=== PATIENT | male | born 1960 | race Caucasian/White ===

== ENCOUNTER 2018-01-01 15:07 | Inpatient (IN) ==
[2018-01-01] MEDS ORDERED: NALOXONE 0.4 MG/ML VIAL IV STA ×2 (15:13→15:14)
[2018-01-01] MEDS ORDERED: NALOXONE 0.4 MG/ML VIAL ONE ×2 (15:13→15:14)
[2018-01-01] MEDS ORDERED: ROCURONIUM 100 MG/10 ML VIAL IV ONE (15:16)
[2018-01-01] MEDS ORDERED: ETOMIDATE 20 MG/10 ML VIAL IV ONE (15:16)
[2018-01-01 15:39] LABS: Basophils # 0.1 10*3/uL (0.0-0.2); Basophils % 0.5 % (0.0-0.8); Eosinophils # 0.1 10*3/uL (0.0-0.87); Eosinophils % 0.5 % (0.00-10.9); Hematocrit 38.9 VOL% (42.0-52.0); Hemoglobin 11.9 GM/DL (14.0-18.0); Immature Granulocytes % 1.7 %; Immature Granulocytes Absolute 0.29 #; Lymphocytes # 5.7 10*3/uL (1.4-4.0); Lymphocytes % 32.8 % (21.2-54.2); Mean Corpuscular HGB Conc 30.6 GM/DL (32-36); Mean Corpuscular Hemoglobin 28 PG (27-34); Mean Corpuscular Volume 90.5 FL (87-102); Mean Platelet Volume 10.5 FL (9.6-12.0); Monocytes # 1.2 10*3/uL (0.11-0.8); NRBC # 0.08 10*3/uL; Neutrophils # 10.1 10*3/uL (1.4-7.4); Neutrophils % 57.5 % (38.7-73.9); Platelet Count 350 T/CUMM (130-400); Red Cell Distribution Width 15.1 % (9.3-17.3); White Blood Count 17.5 T/CUMM (4-12)
[2018-01-01 15:49] LABS: INR 1.2; PT Patient Result 12.8 SECS; Partial Thromboplastin Time 30.3 SECS (0-40)
[2018-01-01 15:59] LABS: Albumin 2.7 G/DL (3.4-5.0); Bilirubin,Total 2.4 MG/DL (0.2-1.0); Calcium 8.9 MG/DL (8.5-10.1); Osmolality,Calculated 294.8 MOS/KG (273-304); Potassium 4.5 MMOL/L (3.5-5.1); Total Protein 6.4 G/DL (6.4-8.3)
[2018-01-01] MEDS ORDERED: EPINEPHrine 1 MG/ML VIAL ONE ×2 (16:04→16:34)
[2018-01-01] MEDS ORDERED: MEROPENEM 1,000 MG in SODIUM CHLORIDE 0.9% 100 ML IV STA ×2 (16:09→16:33)
[2018-01-01] MEDS ORDERED: VANCOMYCIN INJ 1,500 MG in SODIUM CHLORIDE 0.9% 500 ML IV STA (16:09)
[2018-01-01] MEDS ORDERED: NOREPINEPHRINE 4 MG/4 ML VIAL IV ONE (16:28)
[2018-01-01] MEDS: NOREPINEPHRINE 8 MG in SODIUM CHLORIDE 0.9% 242 ML IV PRN ×2 (16:32→21:32)
[2018-01-01] MEDS ORDERED: VASOPRESSIN 20 UNITS/ML VIAL ONE (16:53)
[2018-01-01] MEDS ORDERED: methylPREDNISolone SOD SUC 125 MG/2 ML VIAL ONE (17:12)
[2018-01-01] MEDS ORDERED: methylPREDNISolone SOD SUC 125 MG/2 ML VIAL IV STA (17:13)
[2018-01-01 17:16] LABS: Lactic Acid 14.1 MMOL/L (0.4-2.0)
[2018-01-01] MEDS ORDERED: ALBUTEROL 2.5 MG/3 ML NEB RESP TX PRN (17:17)
[2018-01-01 17:29] LABS: ABG Base Excess -6.6 MMOL/L (-2.5-2.5); ABG Oxygen Saturation 94.2 % (95-100); ABG PCO2 66.5 MM HG (35-48); ABG PO2 97.6 MM HG (80-95); ABG TCO2 21.9 MMOL/L (23-27); Allen Test Positive; Pt O2 Delivery Device Ventilator
[2018-01-01] MEDS ORDERED: GLUCAGON 1 MG VIAL IM PRN (17:30)
[2018-01-01] MEDS ORDERED: PHENYLEPHRINE DRIP 40 MG/250 ML PREMIX IV SCH (17:30)
[2018-01-01] MEDS ORDERED: DOPamine 800 MG/250 ML PREMIX IV SCH (17:30)
[2018-01-01] MEDS ORDERED: DEXTROSE 50% 25 GM/50 ML VIAL IV PRN (17:30)
[2018-01-01] MEDS ORDERED: ENOXAPARIN 40 MG/0.4 ML SYRINGE SUBCUT SCH (17:30)
[2018-01-01 17:33] LABS: ABG PH 7.157 (7.35-7.45)
[2018-01-01] MEDS: VASOPRESSIN 100 UNITS in SODIUM CHLORIDE 0.9% 95 ML IV SCH (18:00)
[2018-01-01 19:23] LABS: Apearance,Urine CLEAR (Clear); Bacteria,Urine Occasional /HPF (Few); Bilirubin,Urine Small mg/dL (Negative); Blood, Urine Negative (Negative); Glucose,Urine (UA) Negative (Negative); Hyaline Casts,Urine 6 /LPF (0-3); Ketones,Urine Negative (Negative); Mucus,Urine Few /LPF (Occasional); Nitrite,Urine Negative (Negative); Protein,Urine 30 MG/DL; RBC,Urine 1 /HPF (0-4); Urine Color Amber (Yellow); Urine Specific Gravity 1.026 (1.001-1.035); WBC,Urine 1 /HPF (0-6)
[2018-01-01] MEDS: DEXTROSE 5% IV SCH (20:01)
[2018-01-01] MEDS: SODIUM BICARB IV SCH (20:01)
[2018-01-01 20:05] LABS: Allen Test Positive; Pt O2 Delivery Device Ventilator
[2018-01-01 20:11] LABS: ABG Base Excess -3.7 MMOL/L (-2.5-2.5); ABG HCO3 25.3 MMOL/L (20-26); ABG PCO2 63.3 MM HG (35-48); ABG PO2 184.9 MM HG (80-95); ABG TCO2 27.3 MMOL/L (23-27)
[2018-01-01] MEDS: PANTOPRAZOLE 40 MG VIAL IV SCH (20:52)
[2018-01-01] MEDS: ENOXAPARIN 120 MG/0.8 ML SYRINGE SUBCUT SCH (20:52)
[2018-01-01] MEDS: INSULIN LISPRO 100 UNIT/ML SUBCUT SCH (20:56)
[2018-01-01] MEDS ORDERED: INSULIN LISPRO 100 UNIT/ML SUBCUT SCH (21:00)
[2018-01-01 21:10] LABS: ABG Base Excess -2.9 MMOL/L (-2.5-2.5); ABG HCO3 22.8 MMOL/L (20-26); ABG Oxygen Saturation 99.3 % (95-100); ABG PCO2 43.1 MM HG (35-48); ABG PH 7.341 (7.35-7.45); ABG PO2 244.1 MM HG (80-95); ABG TCO2 24.1 MMOL/L (23-27); Allen Test Positive; Pt O2 Delivery Device Ventilator
[2018-01-02] MEDS: methylPREDNISolone SOD SUC 125 MG/2 ML VIAL IV SCH ×3 (01:28→18:05)
[2018-01-02] MEDS: INSULIN LISPRO 100 UNIT/ML SUBCUT SCH ×4 (01:31→18:27)
[2018-01-02 04:20] LABS: Basophils % 0.2 % (0.0-0.8); Hematocrit 38.2 VOL% (42.0-52.0); Hemoglobin 12.2 GM/DL (14.0-18.0); Immature Granulocytes % 0.8 %; Immature Granulocytes Absolute 0.16 #; Lymphocytes # 0.9 10*3/uL (1.4-4.0); Lymphocytes % 4.5 % (21.2-54.2); Mean Corpuscular HGB Conc 31.9 GM/DL (32-36); Mean Corpuscular Hemoglobin 28 PG (27-34); Mean Corpuscular Volume 88.4 FL (87-102); Mean Platelet Volume 11.1 FL (9.6-12.0); Monocytes # 0.4 10*3/uL (0.11-0.8); Monocytes % 2.2 % (1.7-12.7); Neutrophils # 18.9 10*3/uL (1.4-7.4); Neutrophils % 92.3 % (38.7-73.9); Platelet Count 226 T/CUMM (130-400); Red Blood Count 4.32 MC/CUMM (3.8-5.5); Red Cell Distribution Width 14.8 % (9.3-17.3); White Blood Count 20.5 T/CUMM (4-12)
[2018-01-02 04:27] LABS: INR 1.4; PT Patient Result 14.8 SECS
[2018-01-02 04:27] LABS: ABG Base Excess 0.6 MMOL/L (-2.5-2.5); ABG HCO3 24.9 MMOL/L (20-26); ABG Oxygen Saturation 99.2 % (95-100); ABG PCO2 37.7 MM HG (35-48); ABG PH 7.425 (7.35-7.45); ABG TCO2 21.7 MMOL/L (23-27); Allen Test Positive; Pt O2 Delivery Device Ventilator
[2018-01-02] MEDS: PROPOFOL 1,000 MG/100 ML BOTTLE IV SCH ×4 (04:42→21:15)
[2018-01-02 04:43] LABS: Albumin 2.5 G/DL (3.4-5.0); Bilirubin,Total 1.7 MG/DL (0.2-1.0); Calcium 8.8 MG/DL (8.5-10.1); Potassium 4.3 MMOL/L (3.5-5.1); Total Protein 6.4 G/DL (6.4-8.3)
[2018-01-02 04:55] LABS: Band Neutrophils 7 % (0-10); Hypochromasia 1+; Lymphocytes 1 % (20-55); Platelet Estimate Adequate; Segmented Neutrophils 92 % (50-85); Total Cells Counted 100
[2018-01-02] MEDS: PANTOPRAZOLE 40 MG VIAL IV SCH ×2 (05:37→18:05)
[2018-01-02] MEDS: SODIUM BICARB IV SCH (08:10)
[2018-01-02] MEDS: DEXTROSE 5% IV SCH (08:10)
[2018-01-02] MEDS: MEROPENEM 500 MG in SODIUM CHLORIDE 0.9% 100 ML IV SCH ×2 (08:32→21:46)
[2018-01-02] MEDS ORDERED: HEPARIN/NACL 0.9% 2 UNITS/ML 500 ML IV ONE (09:38)
[2018-01-02 09:51] LABS: Lactic Acid 2.3 MMOL/L (0.4-2.0)
[2018-01-02] MEDS ORDERED: SODIUM CHLORIDE 0.9% 1,000 ML IV ONE ×3 (10:40→14:00)
[2018-01-02] MEDS: SODIUM CHLORIDE 0.45% 1,000 ML IV SCH (16:52)
[2018-01-02] MEDS: VASOPRESSIN 100 UNITS in SODIUM CHLORIDE 0.9% 95 ML IV SCH (17:02)
[2018-01-02] MEDS: ENOXAPARIN 120 MG/0.8 ML SYRINGE SUBCUT SCH (18:06)
[2018-01-03] MEDS: INSULIN LISPRO 100 UNIT/ML SUBCUT SCH ×4 (00:57→18:33)
[2018-01-03] MEDS: methylPREDNISolone SOD SUC 125 MG/2 ML VIAL IV SCH ×3 (00:59→16:54)
[2018-01-03] MEDS: SODIUM CHLORIDE 0.45% 1,000 ML IV SCH ×3 (03:03→17:00)
[2018-01-03 04:04] LABS: ABG Base Excess 4.7 MMOL/L (-2.5-2.5); ABG HCO3 28.6 MMOL/L (20-26); ABG Oxygen Saturation 99.3 % (95-100); ABG PCO2 32.7 MM HG (35-48); ABG PH 7.527 (7.35-7.45); Allen Test Positive; Pt O2 Delivery Device Ventilator
[2018-01-03] MEDS: PROPOFOL 1,000 MG/100 ML BOTTLE IV SCH ×4 (04:14→23:31)
[2018-01-03] MEDS ORDERED: VANCOMYCIN INJ 1,750 MG in SODIUM CHLORIDE 0.9% 500 ML IV SCH (06:00)
[2018-01-03 06:10] LABS: INR 1.2
[2018-01-03 06:11] LABS: Basophils % 0.1 % (0.0-0.8); Hematocrit 32.6 VOL% (42.0-52.0); Hemoglobin 10.6 GM/DL (14.0-18.0); Immature Granulocytes % 0.8 %; Immature Granulocytes Absolute 0.12 #; Lymphocytes # 0.6 10*3/uL (1.4-4.0); Lymphocytes % 3.9 % (21.2-54.2); Mean Corpuscular HGB Conc 32.5 GM/DL (32-36); Mean Corpuscular Hemoglobin 29 PG (27-34); Mean Corpuscular Volume 89.1 FL (87-102); Mean Platelet Volume 11.5 FL (9.6-12.0); Monocytes # 0.2 10*3/uL (0.11-0.8); Monocytes % 1.6 % (1.7-12.7); Neutrophils # 13.9 10*3/uL (1.4-7.4); Neutrophils % 93.6 % (38.7-73.9); Platelet Count 182 T/CUMM (130-400); Red Blood Count 3.66 MC/CUMM (3.8-5.5); Red Cell Distribution Width 15.1 % (9.3-17.3); White Blood Count 14.8 T/CUMM (4-12)
[2018-01-03 06:16] LABS: Partial Thromboplastin Time 40.4 SECS (0-40)
[2018-01-03 06:19] LABS: Prealbumin 3.3 MG/DL (20-40)
[2018-01-03] MEDS ORDERED: SODIUM CHLORIDE 0.9% 250 ML IV ONE (06:28)
[2018-01-03 06:35] LABS: Band Neutrophils 6 % (0-10); Lymphocytes 2 % (20-55); Platelet Estimate Adequate; Segmented Neutrophils 91 % (50-85); Total Cells Counted 100
[2018-01-03 06:36] LABS: Hypochromasia 1+
[2018-01-03] MEDS: PANTOPRAZOLE 40 MG VIAL IV SCH ×2 (06:38→16:53)
[2018-01-03 08:15] LABS: Calcium 7.1 MG/DL (8.5-10.1); Osmolality,Calculated 306.6 MOS/KG (273-304)
[2018-01-03] MEDS: MEROPENEM 500 MG in SODIUM CHLORIDE 0.9% 100 ML IV SCH ×2 (09:36→20:53)
[2018-01-03] MEDS ORDERED: LACTATED RINGERS 1,000 ML IV ONE (09:49)
[2018-01-03] MEDS ORDERED: ALBUMIN IV SCH (10:00)
[2018-01-03] MEDS: ALBUMIN 25% 25 GM in PREMIX 1 EACH IV SCH ×2 (11:04→18:40)
[2018-01-03] MEDS ORDERED: VANCOMYCIN INJ 2,000 MG in SODIUM CHLORIDE 0.9% 500 ML IV PRN (12:00)
[2018-01-03] MEDS: LORazepam 2 MG/1 ML VIAL IV PRN ×2 (12:24→17:30)
[2018-01-03] MEDS ORDERED: VANCOMYCIN INJ 250 MG in SODIUM CHLORIDE 0.9% 100 ML IV ONE (12:30)
[2018-01-03] MEDS: ENOXAPARIN 120 MG/0.8 ML SYRINGE SUBCUT SCH (16:54)
[2018-01-03] MEDS ORDERED: INFLUENZA VIRUS VACCINE 0.5 ML SYRINGE IM ONE (23:12)
[2018-01-04] MEDS: methylPREDNISolone SOD SUC 125 MG/2 ML VIAL IV SCH ×3 (00:48→16:54)
[2018-01-04] MEDS: INSULIN LISPRO 100 UNIT/ML SUBCUT SCH ×4 (00:48→18:07)
[2018-01-04 03:32] LABS: ABG Base Excess 2.4 MMOL/L (-2.5-2.5); ABG HCO3 26.6 MMOL/L (20-26); ABG Oxygen Saturation 99.7 % (95-100); ABG PCO2 38.6 MM HG (35-48); ABG PH 7.445 (7.35-7.45); ABG TCO2 24.2 MMOL/L (23-27); Allen Test Positive; Pt O2 Delivery Device Ventilator
[2018-01-04] MEDS: SODIUM CHLORIDE 0.45% 1,000 ML IV SCH ×2 (03:55→14:27)
[2018-01-04] MEDS: PROPOFOL 1,000 MG/100 ML BOTTLE IV SCH ×3 (03:56→13:52)
[2018-01-04 05:37] LABS: Hematocrit 28.4 VOL% (42.0-52.0); Immature Granulocytes % 0.6 %; Immature Granulocytes Absolute 0.05 #; Lymphocytes # 0.4 10*3/uL (1.4-4.0); Lymphocytes % 4.5 % (21.2-54.2); Mean Corpuscular HGB Conc 31.7 GM/DL (32-36); Mean Corpuscular Hemoglobin 28 PG (27-34); Mean Corpuscular Volume 88.5 FL (87-102); Mean Platelet Volume 11.5 FL (9.6-12.0); Monocytes # 0.2 10*3/uL (0.11-0.8); Neutrophils # 8.4 10*3/uL (1.4-7.4); Neutrophils % 92.9 % (38.7-73.9); Platelet Count 117 T/CUMM (130-400); Red Blood Count 3.21 MC/CUMM (3.8-5.5); Red Cell Distribution Width 14.6 % (9.3-17.3)
[2018-01-04] MEDS: PANTOPRAZOLE 40 MG VIAL IV SCH ×2 (05:39→16:55)
[2018-01-04 05:56] LABS: Albumin 2.5 G/DL (3.4-5.0); Bilirubin,Total 0.7 MG/DL (0.2-1.0); Calcium 7.6 MG/DL (8.5-10.1); Osmolality,Calculated 306.8 MOS/KG (273-304); Potassium 4.4 MMOL/L (3.5-5.1); Total Protein 5.8 G/DL (6.4-8.3)
[2018-01-04 06:13] LABS: Band Neutrophils 6 % (0-10); Hypochromasia 1+; Lymphocytes 3 % (20-55); Platelet Estimate Decreased; Segmented Neutrophils 90 % (50-85); Total Cells Counted 100
[2018-01-04] MEDS: MEROPENEM 500 MG in SODIUM CHLORIDE 0.9% 100 ML IV SCH ×2 (08:27→21:47)
[2018-01-04] MEDS ORDERED: LACTATED RINGERS 1,000 ML IV ONE (12:32)
[2018-01-04] MEDS: fentaNYL INJ 1,250 MCG in SODIUM CHLORIDE 0.9% 225 ML IV PRN ×2 (12:40→21:49)
[2018-01-04] MEDS ORDERED: VANCOMYCIN INJ 2,000 MG in SODIUM CHLORIDE 0.9% 500 ML IV ONE (15:00)
[2018-01-04] MEDS: ENOXAPARIN 120 MG/0.8 ML SYRINGE SUBCUT SCH (16:55)
[2018-01-05] MEDS: INSULIN LISPRO 100 UNIT/ML SUBCUT SCH ×4 (01:15→18:16)
[2018-01-05] MEDS: methylPREDNISolone SOD SUC 125 MG/2 ML VIAL IV SCH ×3 (01:16→16:49)
[2018-01-05] MEDS: PROPOFOL 1,000 MG/100 ML BOTTLE IV SCH ×2 (02:02→20:23)
[2018-01-05] MEDS: SODIUM CHLORIDE 0.45% 1,000 ML IV SCH ×2 (03:41→03:54)
[2018-01-05 04:34] LABS: Hematocrit 28.7 VOL% (42.0-52.0); Hemoglobin 9.1 GM/DL (14.0-18.0); Immature Granulocytes % 1.1 %; Immature Granulocytes Absolute 0.08 #; Lymphocytes # 0.3 10*3/uL (1.4-4.0); Lymphocytes % 3.6 % (21.2-54.2); Mean Corpuscular HGB Conc 31.7 GM/DL (32-36); Mean Corpuscular Hemoglobin 28 PG (27-34); Mean Corpuscular Volume 89.7 FL (87-102); Mean Platelet Volume 11.6 FL (9.6-12.0); Monocytes # 0.2 10*3/uL (0.11-0.8); Monocytes % 2.3 % (1.7-12.7); Neutrophils # 6.8 10*3/uL (1.4-7.4); Platelet Count 100 T/CUMM (130-400); White Blood Count 7.3 T/CUMM (4-12)
[2018-01-05] MEDS: LORazepam 2 MG/1 ML VIAL IV PRN (04:59)
[2018-01-05 05:03] LABS: Albumin 2.3 G/DL (3.4-5.0); Bilirubin,Total 0.6 MG/DL (0.2-1.0); Calcium 7.8 MG/DL (8.5-10.1); Osmolality,Calculated 309.1 MOS/KG (273-304); Potassium 4.7 MMOL/L (3.5-5.1); Total Protein 5.5 G/DL (6.4-8.3)
[2018-01-05 05:06] LABS: Hypochromasia 1+; Lymphocytes 1 % (20-55); Platelet Estimate Decreased; Segmented Neutrophils 97 % (50-85); Total Cells Counted 100
[2018-01-05 05:28] LABS: ABG Base Excess 0.2 MMOL/L (-2.5-2.5); ABG HCO3 24.6 MMOL/L (20-26); ABG Oxygen Saturation 95.5 % (95-100); ABG PCO2 47.1 MM HG (35-48); ABG PH 7.352 (7.35-7.45); ABG PO2 84.7 MM HG (80-95)
[2018-01-05] MEDS: PANTOPRAZOLE 40 MG VIAL IV SCH ×2 (06:21→16:49)
[2018-01-05] MEDS: fentaNYL INJ 1,250 MCG in SODIUM CHLORIDE 0.9% 225 ML IV PRN ×2 (06:59→16:12)
[2018-01-05] MEDS: MEROPENEM 500 MG in SODIUM CHLORIDE 0.9% 100 ML IV SCH ×2 (08:33→20:22)
[2018-01-05] MEDS: FLUCONAZOLE INJ 100 MG in IV BAG 1 EACH IV SCH (13:03)
[2018-01-05] MEDS: ENOXAPARIN 60 MG/0.6 ML SYRINGE SUBCUT SCH (16:49)
[2018-01-06] MEDS: methylPREDNISolone SOD SUC 125 MG/2 ML VIAL IV SCH ×3 (00:08→17:36)
[2018-01-06] MEDS: INSULIN LISPRO 100 UNIT/ML SUBCUT SCH ×4 (00:08→17:36)
[2018-01-06] MEDS: fentaNYL INJ 1,250 MCG in SODIUM CHLORIDE 0.9% 225 ML IV PRN ×2 (01:45→11:27)
[2018-01-06 03:38] LABS: Hematocrit 28.6 VOL% (42.0-52.0); Immature Granulocytes % 0.9 %; Immature Granulocytes Absolute 0.06 #; Lymphocytes # 0.2 10*3/uL (1.4-4.0); Lymphocytes % 2.8 % (21.2-54.2); Mean Corpuscular HGB Conc 31.5 GM/DL (32-36); Mean Corpuscular Hemoglobin 28 PG (27-34); Mean Corpuscular Volume 89.1 FL (87-102); Monocytes # 0.2 10*3/uL (0.11-0.8); Neutrophils # 6.6 10*3/uL (1.4-7.4); Neutrophils % 93.3 % (38.7-73.9); Platelet Count 106 T/CUMM (130-400); Red Blood Count 3.21 MC/CUMM (3.8-5.5); Red Cell Distribution Width 13.7 % (9.3-17.3)
[2018-01-06 03:48] LABS: PT Patient Result 10.9 SECS; Partial Thromboplastin Time 35.5 SECS (0-40)
[2018-01-06 04:02] LABS: Potassium 5.1 MMOL/L (3.5-5.1)
[2018-01-06 04:30] LABS: Segmented Neutrophils 99 % (50-85); Total Cells Counted 100
[2018-01-06 04:31] LABS: Platelet Estimate Decreased
[2018-01-06] MEDS: PANTOPRAZOLE 40 MG VIAL IV SCH ×2 (05:23→17:36)
[2018-01-06 06:04] LABS: ABG Base Excess 2.2 MMOL/L (-2.5-2.5); ABG HCO3 26.4 MMOL/L (20-26); ABG Oxygen Saturation 99.1 % (95-100); ABG PCO2 47.2 MM HG (35-48); ABG PH 7.379 (7.35-7.45); ABG TCO2 25.4 MMOL/L (23-27)
[2018-01-06] MEDS: PROPOFOL 1,000 MG/100 ML BOTTLE IV SCH ×3 (08:12→16:39)
[2018-01-06] MEDS: MEROPENEM 500 MG in SODIUM CHLORIDE 0.9% 100 ML IV SCH (08:30)
[2018-01-06 09:46] VITALS: BP 157/92
[2018-01-06] MEDS ORDERED: VANCOMYCIN INJ 2,000 MG in SODIUM CHLORIDE 0.9% 500 ML IV SCH (10:00)
[2018-01-06] MEDS: FLUCONAZOLE INJ 100 MG in IV BAG 1 EACH IV SCH (11:54)
[2018-01-06] MEDS: ENOXAPARIN 60 MG/0.6 ML SYRINGE SUBCUT SCH (17:36)
[2018-01-06] MEDS: MORPHINE 4 MG/1 ML VIAL IV PRN ×3 (17:56→22:50)
[2018-01-06] MEDS: LORazepam 2 MG/1 ML VIAL IV PRN ×4 (18:13→23:45)
[2018-01-07] MEDS: MORPHINE 4 MG/1 ML VIAL IV PRN ×10 (01:25→22:20)
[2018-01-07] MEDS: LORazepam 2 MG/1 ML VIAL IV PRN ×6 (04:26→23:46)
[2018-01-07] MEDS ORDERED: SCOPOLAMINE 1.5 MG PATCH TRANSDERM SCH (10:30)
[2018-01-07] MEDS ORDERED: fentaNYL 12 MCG/HR PATCH TRANSDERM SCH (10:30)
[2018-01-08] MEDS: LORazepam 2 MG/1 ML VIAL IV PRN (03:27)
[2018-01-08] MEDS: MORPHINE 4 MG/1 ML VIAL IV PRN (03:29)
== END 2018-01-08 04:00 | disposition expired | DRG 720 ==
LOC: N.ED 15:07 → N.EDINP 17:17 → SUATTDRO 17:17 → N.ICU 17:57
PROVIDERS: ADMIT Family Medicine; ATTEND Internal Medicine